=== PATIENT | female | born 1980 | race Caucasian/White ===

== ENCOUNTER 2019-04-29 17:31 | Emergency (ER) | payer BC, OTHER ==
[~2019-04-29] VITALS: Ht 167.6 cm; Wt 75.0 kg
[~2019-04-29 17:31] MED LIST: NAPR-985 PO
[2019-04-29 17:39] VITALS: Ht 167.6 cm; Wt 75.0 kg
[2019-04-29] MEDS ORDERED: ONDANSETRON 4 MG INJ IV STA (18:37)
[2019-04-29] MEDS ORDERED: SOD CHLORIDE 0.9% 1,000 ML IV STA (18:37)
[2019-04-29] MEDS ORDERED: morphine 4 MG/ML VIAL IV STA (18:37)
[2019-04-29 20:26] VITALS: BP 126/69; PULSE 55; RESP 18
--- NOTE | 2019-05-05 14:17 | ERD ---
ER Documentation Chief Complaint Chief Complaint left lower pelvic pain since yesterday w/vaginal bleeding HPI This is a 38-year-old female presenting to the emergency department complaining of intermittent vaginal spotting for the past 1 day. Last menstrual cycle was on 04/16/2019. She is G1, P1. She reports suprapubic pain which is 10/10 severity and constant. She denies any dysuria, nausea, vomiting, diarrhea, she denies taking any medication for relief of symptoms. No other symptoms reported at this time. ROS All systems reviewed and are negative except as per history of present illness. Medications Home Meds Active Scripts Naproxen* (Naprosyn*) 500 Mg Tablet, 500 MG PO BID PRN for PAIN AND/OR INFLAMMATION, #30 TAB Prov:GARY DUARTE PA-C 04/29/19 Reported Medications [None] No Conflict Check 02/03/11 Allergies Allergies: Coded Allergies: Codeine (Verified Allergy, Unknown, 06/24/09) PMhx/Soc History of Surgery: Yes (CYSTS REMOVAKL) Anesthesia Reaction: No Hx Neurological Disorder: No Hx Respiratory Disorders: No Hx Cardiac Disorders: No Hx Psychiatric Problems: No Hx Miscellaneous Medical Probl: No Hx Alcohol Use: No Hx Substance Use: No Hx Tobacco Use: No Smoking Status: Never smoker Physical Exam Physical Exam Const: No acute distress Head: Atraumatic Eyes: Normal Conjunctiva ENT: Normal External Ears, Nose and Mouth. Neck: Full range of motion. No meningismus. Resp: Clear to auscultation bilaterally Cardio: Regular rate and rhythm, no murmurs Abd: Soft, non tender, non distended. Normal bowel sounds. No rebound tenderness or guarding. No McBurney's point tenderness. No suprapubic tenderness to palpation. Skin: No petechiae or rashes Back: No midline or flank tenderness Ext: No cyanosis, or edema Neur: Awake and alert Psych: Normal Mood and Affect Results 24 hrs Laboratory Tests Test 04/29/19 18:44 04/29/19 18:46 04/29/19 18:48 POC Beta HCG, Qualitative NEGATIVE Bedside Urine pH (LAB) 5.5 Bedside Urine Protein (LAB) Negative Bedside Urine Glucose (UA) Negative Bedside Urine Ketones (LAB) Negative Bedside Urine Blood Trace-intact Bedside Urine Nitrite (LAB) Negative Bedside Urine Leukocyte Esterase Negative (L White Blood Count 6.3 10^3/ul Red Blood Count 4.25 10^6/ul Hemoglobin 13.2 g/dl Hematocrit 39.4 % Mean Corpuscular Volume 92.7 fl Mean Corpuscular Hemoglobin 31.1 pg Mean Corpuscular 33.5 g/dl Hemoglobin Concent Red Cell Distribution Width 12.2 % Platelet Count 288 10^3/UL Mean Platelet Volume 10.0 fl Immature Granulocytes % 0.300 % Neutrophils % 56.7 % Lymphocytes % 33.8 % Monocytes % 7.3 % Eosinophils % 1.4 % Basophils % 0.5 % Nucleated Red Blood Cells % 0.0 /100WBC Immature Granulocytes # 0.020 10^3/ul Neutrophils # 3.6 10^3/ul Lymphocytes # 2.1 10^3/ul Monocytes # 0.5 10^3/ul Eosinophils # 0.1 10^3/ul Basophils # 0.0 10^3/ul Nucleated Red Blood Cells # 0.0 10^3/ul Urine Color STRAW Urine Clarity CLEAR Urine pH 6.0 Urine Specific [place] 1.013 Urine Ketones NEGATIVE mg/dL Urine Nitrite NEGATIVE mg/dL Urine Bilirubin NEGATIVE mg/dL Urine Urobilinogen NEGATIVE mg/dL Urine Leukocyte Esterase NEGATIVE [place]/ul Urine Microscopic RBC 0 /HPF Urine Microscopic WBC 0 /HPF Urine Hemoglobin 1+ mg/dL Urine Glucose NEGATIVE mg/dL Urine Total Protein NEGATIVE mg/dl Sodium Level 140 mmol/L Potassium Level 3.6 mmol/L Chloride Level 105 mmol/L Carbon Dioxide Level 27 mmol/L Anion Gap 8 Blood Urea Nitrogen 18 mg/dl Creatinine 0.83 mg/dl Est Glomerular Filtrat > 60 mL/min Rate mL/min Glucose Level 88 mg/dl Calcium Level 9.3 mg/dl Current Medications Medications Dose Sig/Aquilino Start Time Status Last (Trade) Ordered Route PRN Stop Time Admin Dose Reason Admin Sodium 1,000 ml @ Q1H STAT 04/29/19 DC 04/29/19 Chloride 1,000 mls/hr IV 18:37 18:45 04/29/19 19:36 Morphine 4 mg ONCE STAT 04/29/19 DC 04/29/19 Sulfate IV 18:37 18:46 (morphine) 04/29/19 18:39 Ondansetron 4 mg ONCE STAT 04/29/19 DC 04/29/19 HCl (Zofran IV 18:37 18:46 Inj) 04/29/19 18:39 [place] [id number] Radiology Main Line: [phone] DIAGNOSTIC IMAGING REPORT Patient: AUGUSTO ARAIZA : 1980 Age: 38 Sex: F MR #: [id number] DOS: 04/29/19 1837 Ordering MD: GARY DUARTE PA-C Location: [facility] Room/Bed: PROCEDURE: US Pelvis Transabdominal and Transvaginal. CLINICAL INDICATION: Pelvic pain. TECHNIQUE: Multiple sonographic images of the pelvis were obtained utilizing wilcox scale, Doppler and color flow imaging with transabdominal and endovaginal technique. The images were reviewed on a PACS workstation. COMPARISON: None. FINDINGS: Uterus: Size: 6.7 x 3.9 x 4.5 cm. Masses: None. Nabothian cysts: None. Endometrium: Thickness: 2.8 mm. Lesions: None. Right ovary: Size: 2.9 x 1.5 x 1.8 cm. Lesions: None. Vascularity: Normal. Left ovary: Size: 1.9 x 1.1 x 1.3 cm. Lesions: None. Vascularity: Normal. Adnexae: Masses: None. Fluid: None. IMPRESSION: Unremarkable pelvic ultrasound. If further characterization of the organs of the pelvis is needed MRI should be considered. RPTAT: AA .Layo Schrader MD, MD Date Time Electronically viewed and signed by .Layo Schrader MD, MD on 04/29/2019 19:44 .P/ CC: GARY DUARTE PA-C [id number] Procedures/MDM 30-year-old female presents with pelvic pain of unclear etiology. Low suspicion for ectopic , tubo-ovarian abscess, PID, ovarian torsion, or other emergent process. Patient's vital signs are stable and she is nontoxic and well-appearing. Ultrasound of the pelvis showed no acute abnormalities. Full report interpreted by the radiologist may be viewed above. Patient is otherwise stable for discharge and further follow-up with her [facility] physician. She should return here immediately for new or concerning symptoms. Patient was in agreement with the diagnosis, plan, need for follow-up, return precautions. CBC: no e/o of systemic infection or severe anemia CMP: no e/o severe acidosis, alkalosis, renal failure, diabetic ketoacidosis, liver disease Lipase: no e/o pancreatitis PT/INR: normal coagulation Urine: no e/o acute infection or hematuria Departure Diagnosis: Primary Impression: Acute pain in female pelvis Condition: Fair Patient Instructions: Pelvic Pain, Unknown Cause Referrals: [facility] YOU HAVE RECEIVED A MEDICAL SCREENING EXAM AND THE RESULTS INDICATE THAT YOU DO NOT HAVE A CONDITION THAT REQUIRES URGENT TREATMENT IN THE EMERGENCY DEPARTMENT. FURTHER EVALUATION AND TREATMENT OF YOUR CONDITION CAN WAIT UNTIL YOU ARE SEEN IN YOUR DOCTORS OFFICE WITHIN THE NEXT 1-2 DAYS. IT IS YOUR RESPONSIBILITY TO MAKE AN APPOINTMENT FOR FOLOW-UP CARE. IF YOU HAVE A PRIMARY DOCTOR --you should call your primary doctor and schedule an appointment IF YOU DO NOT HAVE A PRIMARY DOCTOR YOU CAN CALL OUR PHYSICIAN REFERRAL HOTLINE AT IF YOU CAN NOT AFFORD TO SEE A PHYSICIAN YOU CAN CHOSE FROM THE FOLLOWING [facility] [address] [facility] [facility] [address] [facility] [facility] [address] [facility] [facility] [address] [facility] [facility] [address] [facility] [facility]. [address] [facility] [place] [address] [facility] [address] [place] [address]LEME [address] [address] [address] [place]SHAD, [place] [address] [place] [address] [address] AD[address], [facility] [address], [address], [employer] [address] [address]ALLO, [facility] [address] [facility], [place] [address] [facility] [address] [place] [address] [address] [facility] [id number] - FATUMA ERNANDEZ [address], [facility] [phone] DR BENJAMIN, RACHEL [address] [facility]. [address], [facility] [address] [address] [facility] [address] [place], [place] [id number] Additional Instructions: Call your primary care doctor TOMORROW for an appointment during the next 1-2 days.See the doctor sooner or return here if your condition worsens before your appointment time. GARY DUARTE PA-C May 05, 2019 14:16
== END 2019-04-29 20:30 | disposition home or self-care (01) ==
LOC: FTE 17:31
DX: R10.2 Pelvic and perineal pain (principal)
CPT/HCPCS: 36415; 76830; 76856; 80048; 81001; 81025; 85025; 96361; 96374; 96375; 99285; J2270; J2405; J7030; 81003